=== PATIENT | male | born 1970 | race Caucasian/White ===

== ENCOUNTER 2018-01-16 17:35 | Inpatient (IN) | payer MEDICARE, MEDICAID ==
[~2018-01-16] VITALS: Ht 188 cm; Wt 81.0 kg
[~2018-01-16 17:35] MED LIST: ASPI81TA30 PO; BACL10TA2 PO; CALC1TAB PO; DEXT1DRO6 OP; DOCU250C47 PO; FLO0.4C PO; LACT10SO74 PO; MAG DELAY64 MG PO; METH1TAB PO; MULT1TAB74 PO; POLY119P2 PO; RISP0.5T3 PO; [UNRECOGNIZED DRUG - CODE] EACH EAR
[2018-01-16] MEDS ORDERED: normal saline 1000ML IV soln IV ONE (18:05)
[2018-01-16] MEDS ORDERED: cefepime 2g/NS 100ml ADVANTAGE 100 ML IV ONE (18:15)
[2018-01-16 18:39] LABS: BASOPHILS % (AUTO) 0.1 % (0-1); EOSINOPHILS % (AUTO) 0 % (0-6); HEMATOCRIT 46.3 % (42.0-52.0); HEMOGLOBIN 15.1 g/dl (14.0-17.9); LYMPHOCYTES # (AUTO) 0.2 X10'3 (1.1-4.8); LYMPHOCYTES % (AUTO) 1.6 % (21-51); MEAN CORPUSCULAR HEMOGLOBIN 27.8 PG (27.0-31.0); MEAN CORPUSCULAR HGB CONC 32.6 % (33.0-36.5); MEAN CORPUSCULAR VOLUME 85.4 FL (78-98); MEAN PLATELET VOLUME 9.6 FL (7.4-10.4); MONOCYTES % (AUTO) 7.3 % (2-12); NEUTROPHILS # (AUTO) 12.3 X10'3 (1.8-7.7); PLATELET COUNT 158 X10'3 (140-440); RED BLOOD COUNT 5.42 X10'6 (4.70-6.10); RED CELL DISTRIBUTION WIDTH 16.3 % (11.5-14.5); WHITE BLOOD COUNT 13.6 X10'3 (4.5-11.0)
[2018-01-16 18:54] LABS: ALANINE AMINOTRANSFERASE 22 U/L (12-78); ALBUMIN 2.9 G/DL (3.4-5.0); ALBUMIN/GLOBULIN RATIO 0.7 (1.1-1.5); ALKALINE PHOSPHATASE 116 IU/L (46-116); ANION GAP 8 (8-16); ASPARTATE AMINO TRANSFERASE 9 U/L (10-37); BILIRUBIN,TOTAL 0.4 MG/DL (0.1-1.0); BLOOD UREA NITROGEN 26 MG/DL (7-18); BUN/CREATININE RATIO 17.6 (5.4-32.0); CHLORIDE 102 MMOL/L (99-107); CREATININE 1.48 MG/DL (0.60-1.10); GLUCOSE 189 MG/DL (70-104); POTASSIUM 4.1 MMOL/L (3.5-5.1); SODIUM 137 MMOL/L (135-145); TOTAL CARBON DIOXIDE 26.8 MMOL/L (24-32); TOTAL PROTEIN 6.8 G/DL (6.4-8.2); eGFR 51 ML/MIN
[2018-01-16 18:59] LABS: INR 1.1 INR; PARTIAL THROMBOPLASTIN TIME 32 SECONDS (22-32); PROTHROMBIN TIME 11.4 SECONDS (9.0-12.0)
[2018-01-16 19:25] LABS: CLARITY,URINE CLOUDY (Clear); GLUCOSE, URINE NEGATIVE (Neg); KETONES,URINE NEGATIVE (Neg); LEUKOCYTE ESTERASE ,URINE LARGE (Neg); NITRITES, URINE NEGATIVE (Neg); OCCULT BLOOD,URINE LARGE (Neg); PH,URINE 8.5 (4.8-8.0); PROTEIN,URINE 30 mg/dl (Neg); UROBILINOGEN,URINE 0.2 E.U/dL (0.2-1.0)
[2018-01-16 19:33] LABS: UA COLLECTION TYPE FOLEY CATH
[2018-01-16 19:34] LABS: COLOR,URINE DARK YELLOW (Yellow)
[2018-01-16 19:35] LABS: BACTERIA,URINE FEW /HPF (Neg); RBC,URINE TNTC /HPF (0-2); SQUAMOUS EPITHELIAL CELL,UR FEW /LPF (FEW); WBC CLUMPS,URINE FEW /HPF (NEGATIVE)
[2018-01-16] MEDS ORDERED: MUPI15CR12 TOP (19:50)
[2018-01-16] MEDS ORDERED: HYPR10GE4 EACHEYE (19:50)
[2018-01-16] MEDS ORDERED: FLO0.4C PO ×2 (19:50→19:56)
[2018-01-16] MEDS ORDERED: GUAI200T5 PO (19:54)
[2018-01-16] MEDS ORDERED: levoFLOXACIN-Levaquin 750MG/D5 150 ML IV STA (21:31)
[2018-01-16] MEDS ORDERED: ondansetron/PF 4mg/2ml inj IV PRN (21:45)
[2018-01-16] MEDS ORDERED: acetaminophen 325mg tablet PO PRN (21:45)
[2018-01-16] MEDS ORDERED: risperiDONE 0.5mg tablet PO PRN (21:55)
[2018-01-16] MEDS: normal saline 1000ml 1,000 ML IV SCH (22:01)
[2018-01-16 23:20] VITALS: BP 117/72
[2018-01-17] MEDS: cefepime 1GM/NS ADD-VANTAGE 100 ML IV SCH ×4 (00:11→23:44)
[2018-01-17 06:00] VITALS: BP 95/62
[2018-01-17 06:14] LABS: BASOPHILS % (AUTO) 0.4 % (0-1); EOSINOPHILS % (AUTO) 0.1 % (0-6); HEMATOCRIT 37.8 % (42.0-52.0); HEMOGLOBIN 12.5 g/dl (14.0-17.9); LYMPHOCYTES # (AUTO) 0.7 X10'3 (1.1-4.8); LYMPHOCYTES % (AUTO) 8.8 % (21-51); MEAN CORPUSCULAR HEMOGLOBIN 28.1 PG (27.0-31.0); MEAN CORPUSCULAR VOLUME 85.2 FL (78-98); MEAN PLATELET VOLUME 9.6 FL (7.4-10.4); MONOCYTES % (AUTO) 13.6 % (2-12); NEUTROPHILS # (AUTO) 5.8 X10'3 (1.8-7.7); NEUTROPHILS % (AUTO) 77.1 % (42-75); PLATELET COUNT 127 X10'3 (140-440); RED BLOOD COUNT 4.44 X10'6 (4.70-6.10); RED CELL DISTRIBUTION WIDTH 15.8 % (11.5-14.5); WHITE BLOOD COUNT 7.5 X10'3 (4.5-11.0)
[2018-01-17 06:43] LABS: ALANINE AMINOTRANSFERASE 20 U/L (12-78); ALBUMIN 2.2 G/DL (3.4-5.0); ALBUMIN/GLOBULIN RATIO 0.7 (1.1-1.5); ALKALINE PHOSPHATASE 93 IU/L (46-116); ANION GAP 8 (8-16); ASPARTATE AMINO TRANSFERASE 11 U/L (10-37); BILIRUBIN,TOTAL 0.5 MG/DL (0.1-1.0); BLOOD UREA NITROGEN 24 MG/DL (7-18); BUN/CREATININE RATIO 17.5 (5.4-32.0); CALCIUM 7.8 MG/DL (8.5-10.1); CHLORIDE 109 MMOL/L (99-107); CREATININE 1.37 MG/DL (0.60-1.10); GLUCOSE 95 MG/DL (70-104); POTASSIUM 4.1 MMOL/L (3.5-5.1); SODIUM 141 MMOL/L (135-145); TOTAL CARBON DIOXIDE 24.4 MMOL/L (24-32); TOTAL PROTEIN 5.5 G/DL (6.4-8.2); eGFR 56 ML/MIN
[2018-01-17] MEDS ORDERED: guaiFENesin ER 600mg tablet PO SCH (08:00)
[2018-01-17] MEDS: HYPROMELLOSE EACHEYE SCH (08:00)
[2018-01-17] MEDS: magnesium Cl slow-release 64mg tablet PO SCH ×2 (08:00→20:00)
[2018-01-17] MEDS ORDERED: aspirin 81mg tablet.DR PO SCH (08:00)
[2018-01-17] MEDS: normal saline 1000ml 1,000 ML IV SCH ×2 (08:07→20:41)
[2018-01-17] MEDS: baclofen 10mg tablet PO SCH ×3 (08:15→21:00)
[2018-01-17] MEDS: docusate sod 100mg capsule PO SCH ×2 (08:15→20:00)
[2018-01-17] MEDS: aspirin 81mg tab.chew PO SCH (08:16)
[2018-01-17] MEDS: lactulose 20gm/30ml cup PO SCH (08:17)
[2018-01-17] MEDS: guaiFENesin 200 MG/10 ML oral syrup UD cup PO SCH ×2 (08:17→20:00)
[2018-01-17] MEDS: levoFLOXACIN-Levaquin 500mg/D5 100 ML IV SCH (09:28)
[2018-01-17 10:00] VITALS: BP 101/67
[2018-01-17] MEDS ORDERED: magnesium 4gm in 100ml NS 100 ML IV PRN (10:00)
[2018-01-17 18:00] VITALS: BP 116/78
[2018-01-17 22:00] VITALS: BP 120/77
[2018-01-17] MEDS ORDERED: acetaminophen 650mg rectal suppository RC PRN (22:35)
[2018-01-18] MEDS: normal saline 1000ml 1,000 ML IV SCH ×3 (03:45→23:31)
[2018-01-18 06:00] VITALS: BP 139/91
[2018-01-18 06:08] LABS: BASOPHILS % (AUTO) 0.3 % (0-1); EOSINOPHILS # (AUTO) 0.1 X10'3 (0-0.9); EOSINOPHILS % (AUTO) 2.6 % (0-6); HEMATOCRIT 43.4 % (42.0-52.0); HEMOGLOBIN 14.2 g/dl (14.0-17.9); LYMPHOCYTES # (AUTO) 0.7 X10'3 (1.1-4.8); LYMPHOCYTES % (AUTO) 13.6 % (21-51); MEAN CORPUSCULAR HEMOGLOBIN 27.9 PG (27.0-31.0); MEAN CORPUSCULAR HGB CONC 32.8 % (33.0-36.5); MEAN PLATELET VOLUME 9.5 FL (7.4-10.4); MONOCYTES % (AUTO) 18.5 % (2-12); NEUTROPHILS # (AUTO) 3.4 X10'3 (1.8-7.7); PLATELET COUNT 136 X10'3 (140-440); RED CELL DISTRIBUTION WIDTH 16.1 % (11.5-14.5); WHITE BLOOD COUNT 5.2 X10'3 (4.5-11.0)
[2018-01-18 06:38] LABS: ALANINE AMINOTRANSFERASE 29 U/L (12-78); ALBUMIN 2.6 G/DL (3.4-5.0); ALBUMIN/GLOBULIN RATIO 0.7 (1.1-1.5); ALKALINE PHOSPHATASE 97 IU/L (46-116); ANION GAP 7 (8-16); ASPARTATE AMINO TRANSFERASE 32 U/L (10-37); BILIRUBIN,TOTAL 0.5 MG/DL (0.1-1.0); BLOOD UREA NITROGEN 15 MG/DL (7-18); BUN/CREATININE RATIO 10.8 (5.4-32.0); CALCIUM 8.7 MG/DL (8.5-10.1); CHLORIDE 104 MMOL/L (99-107); CREATININE 1.39 MG/DL (0.60-1.10); GLUCOSE 97 MG/DL (70-104); SODIUM 138 MMOL/L (135-145); TOTAL PROTEIN 6.5 G/DL (6.4-8.2); eGFR 55 ML/MIN
[2018-01-18] MEDS: magnesium Cl slow-release 64mg tablet PO SCH ×2 (07:35→20:00)
[2018-01-18] MEDS: HYPROMELLOSE EACHEYE SCH (07:38)
[2018-01-18] MEDS: docusate sod 100mg capsule PO SCH ×2 (07:39→20:00)
[2018-01-18] MEDS: cefepime 1GM/NS ADD-VANTAGE 100 ML IV SCH ×3 (07:55→23:30)
[2018-01-18] MEDS: baclofen 10mg tablet PO SCH ×3 (07:56→20:16)
[2018-01-18] MEDS: aspirin 81mg tab.chew PO SCH (07:56)
[2018-01-18] MEDS: guaiFENesin 200 MG/10 ML oral syrup UD cup PO SCH ×2 (07:58→20:15)
[2018-01-18] MEDS: lactulose 20gm/30ml cup PO SCH (08:00)
[2018-01-18] MEDS: levoFLOXACIN-Levaquin 500mg/D5 100 ML IV SCH (08:41)
[2018-01-18 10:00] VITALS: BP 130/88
[2018-01-18] MEDS ORDERED: ondansetron/PF 4mg/2ml inj IV PRN (10:30)
[2018-01-18 18:00] VITALS: BP 133/90
[2018-01-18 22:01] VITALS: BP 124/83
[2018-01-19 06:00] VITALS: BP 120/71
[2018-01-19 06:44] LABS: BASOPHILS % (AUTO) 0.3 % (0-1); EOSINOPHILS # (AUTO) 0.1 X10'3 (0-0.9); EOSINOPHILS % (AUTO) 2.4 % (0-6); HEMATOCRIT 43.9 % (42.0-52.0); HEMOGLOBIN 14.2 g/dl (14.0-17.9); LYMPHOCYTES # (AUTO) 0.8 X10'3 (1.1-4.8); LYMPHOCYTES % (AUTO) 13.1 % (21-51); MEAN CORPUSCULAR HEMOGLOBIN 27.6 PG (27.0-31.0); MEAN CORPUSCULAR HGB CONC 32.4 % (33.0-36.5); MEAN CORPUSCULAR VOLUME 85.1 FL (78-98); MEAN PLATELET VOLUME 9.8 FL (7.4-10.4); MONOCYTES # (AUTO) 1.2 X10'3 (0-0.9); MONOCYTES % (AUTO) 20.5 % (2-12); NEUTROPHILS # (AUTO) 3.9 X10'3 (1.8-7.7); NEUTROPHILS % (AUTO) 63.7 % (42-75); PLATELET COUNT 149 X10'3 (140-440); RED BLOOD COUNT 5.16 X10'6 (4.70-6.10); RED CELL DISTRIBUTION WIDTH 15.9 % (11.5-14.5); WHITE BLOOD COUNT 6.1 X10'3 (4.5-11.0)
[2018-01-19] MEDS: HYPROMELLOSE EACHEYE SCH (07:12)
[2018-01-19] MEDS: docusate sod 100mg capsule PO SCH ×2 (07:12→20:00)
[2018-01-19] MEDS: magnesium Cl slow-release 64mg tablet PO SCH ×2 (07:12→20:00)
[2018-01-19] MEDS: cefepime 1GM/NS ADD-VANTAGE 100 ML IV SCH (07:19)
[2018-01-19 07:33] LABS: ALANINE AMINOTRANSFERASE 29 U/L (12-78); ALBUMIN 2.5 G/DL (3.4-5.0); ALBUMIN/GLOBULIN RATIO 0.7 (1.1-1.5); ALKALINE PHOSPHATASE 93 IU/L (46-116); ANION GAP 7 (8-16); ASPARTATE AMINO TRANSFERASE 26 U/L (10-37); BILIRUBIN,TOTAL 0.5 MG/DL (0.1-1.0); BLOOD UREA NITROGEN 12 MG/DL (7-18); BUN/CREATININE RATIO 9.8 (5.4-32.0); CALCIUM 8.7 MG/DL (8.5-10.1); CHLORIDE 104 MMOL/L (99-107); CREATININE 1.22 MG/DL (0.60-1.10); GLUCOSE 103 MG/DL (70-104); SODIUM 138 MMOL/L (135-145); TOTAL CARBON DIOXIDE 26.8 MMOL/L (24-32); TOTAL PROTEIN 6.3 G/DL (6.4-8.2); eGFR 64 ML/MIN
[2018-01-19] MEDS: aspirin 81mg tab.chew PO SCH (08:21)
[2018-01-19] MEDS: baclofen 10mg tablet PO SCH ×3 (08:21→20:24)
[2018-01-19] MEDS: lactulose 20gm/30ml cup PO SCH (08:22)
[2018-01-19] MEDS: guaiFENesin 200 MG/10 ML oral syrup UD cup PO SCH ×2 (08:23→20:22)
[2018-01-19] MEDS: levoFLOXACIN-Levaquin 500mg/D5 100 ML IV SCH (08:25)
[2018-01-19 10:00] VITALS: BP 125/85
[2018-01-19] MEDS: normal saline 1000ml 1,000 ML IV SCH ×2 (10:59→20:30)
[2018-01-19] MEDS: piperacillin-tazo 2.25gm/50ml 50 ML IV SCH ×2 (13:18→20:23)
[2018-01-19 18:00] VITALS: BP 105/60
[2018-01-19] MEDS: lactobacillus rhamnosus 10,000 MMU CELLS/CAPSULE PO SCH (20:24)
[2018-01-19 22:00] VITALS: BP 113/85
[2018-01-20] MEDS: piperacillin-tazo 2.25gm/50ml 50 ML IV SCH ×2 (01:45→10:02)
[2018-01-20 06:00] VITALS: BP 133/88
[2018-01-20 06:36] LABS: BASOPHILS % (AUTO) 0.5 % (0-1); EOSINOPHILS # (AUTO) 0.3 X10'3 (0-0.9); EOSINOPHILS % (AUTO) 5.9 % (0-6); HEMOGLOBIN 14.9 g/dl (14.0-17.9); LYMPHOCYTES # (AUTO) 0.8 X10'3 (1.1-4.8); LYMPHOCYTES % (AUTO) 14.9 % (21-51); MEAN CORPUSCULAR HEMOGLOBIN 28.1 PG (27.0-31.0); MEAN CORPUSCULAR HGB CONC 33.2 % (33.0-36.5); MEAN CORPUSCULAR VOLUME 84.8 FL (78-98); MEAN PLATELET VOLUME 8.7 FL (7.4-10.4); MONOCYTES # (AUTO) 0.8 X10'3 (0-0.9); MONOCYTES % (AUTO) 14.2 % (2-12); NEUTROPHILS # (AUTO) 3.6 X10'3 (1.8-7.7); NEUTROPHILS % (AUTO) 64.5 % (42-75); PLATELET COUNT 176 X10'3 (140-440); RED BLOOD COUNT 5.31 X10'6 (4.70-6.10); RED CELL DISTRIBUTION WIDTH 16.3 % (11.5-14.5); WHITE BLOOD COUNT 5.7 X10'3 (4.5-11.0)
[2018-01-20 06:59] LABS: ALANINE AMINOTRANSFERASE 29 U/L (12-78); ALBUMIN 2.5 G/DL (3.4-5.0); ALBUMIN/GLOBULIN RATIO 0.6 (1.1-1.5); ALKALINE PHOSPHATASE 87 IU/L (46-116); ANION GAP 7 (8-16); ASPARTATE AMINO TRANSFERASE 18 U/L (10-37); BILIRUBIN,TOTAL 0.6 MG/DL (0.1-1.0); BLOOD UREA NITROGEN 15 MG/DL (7-18); BUN/CREATININE RATIO 10.5 (5.4-32.0); CALCIUM 8.7 MG/DL (8.5-10.1); CHLORIDE 106 MMOL/L (99-107); CREATININE 1.43 MG/DL (0.60-1.10); GLUCOSE 106 MG/DL (70-104); SODIUM 140 MMOL/L (135-145); TOTAL CARBON DIOXIDE 26.6 MMOL/L (24-32); TOTAL PROTEIN 6.4 G/DL (6.4-8.2); eGFR 53 ML/MIN
[2018-01-20] MEDS: HYPROMELLOSE EACHEYE SCH (08:00)
[2018-01-20] MEDS: levoFLOXACIN-Levaquin 500mg/D5 100 ML IV SCH (08:11)
[2018-01-20] MEDS: lactulose 20gm/30ml cup PO SCH (08:12)
[2018-01-20] MEDS: docusate sod 100mg capsule PO SCH (08:12)
[2018-01-20] MEDS: lactobacillus rhamnosus 10,000 MMU CELLS/CAPSULE PO SCH (08:12)
[2018-01-20] MEDS: guaiFENesin 200 MG/10 ML oral syrup UD cup PO SCH (08:12)
[2018-01-20] MEDS: magnesium Cl slow-release 64mg tablet PO SCH (08:12)
[2018-01-20] MEDS: aspirin 81mg tab.chew PO SCH (08:12)
[2018-01-20] MEDS: baclofen 10mg tablet PO SCH (08:12)
[2018-01-20 10:00] VITALS: BP 113/77
[2018-01-20] MEDS ORDERED: AMOX250S63 PO (10:55)
[2018-01-20] MEDS ORDERED: cipro PO (11:07)
== END 2018-01-20 12:30 | disposition home or self-care (01) | DRG 871 ==
LOC: ER 17:35 → ED HOLD 21:45 → ORTHO 4S 23:06
PROVIDERS: ADMIT Internal Medicine; ATTEND Internal Medicine
DX: A41.9 Sepsis, unspecified organism (principal); G82.50 Quadriplegia, unspecified; N39.0 Urinary tract infection, site not specified; B96.5 Pseudomonas (aeruginosa) (mallei) (pseudomallei) as the cause of diseases classified elsewhere; B96.4 Proteus (mirabilis) (morganii) as the cause of diseases classified elsewhere; B95.2 Enterococcus as the cause of diseases classified elsewhere; B96.1 Klebsiella pneumoniae [K. pneumoniae] as the cause of diseases classified elsewhere; Z74.01 Bed confinement status; Z99.3 Dependence on wheelchair; Z79.82 Long term (current) use of aspirin; Z79.899 Other long term (current) drug therapy; Z87.442 Personal history of urinary calculi
CPT/HCPCS: 36415; 71045; 80053; 81001; 83605; 84145; 85025; 85610; 85730; 87040; 87070; 87077; 87088; 87186; 92616; 96361; 96365; 96366; 99285; G0378; J0692; J1956; J2405; J2543; J7030

== ENCOUNTER 2018-01-22 22:23 | Emergency (ER) | payer MEDICARE, MEDICAID ==
[~2018-01-22] VITALS: Ht 185.4 cm; Wt 81.0 kg
[~2018-01-22 22:23] MED LIST changes: +AMOX250S63 PO; -CALC1TAB PO; -DEXT1DRO6 OP; +HYPR10GE4 EACHEYE; +cipro PO
[2018-01-22] MEDS ORDERED: LIDOcaine 2% 10ml TOPICAL JELLY (Urojet) MM ONE (23:15)
[2018-01-23 02:32] VITALS: BP 103/79
== END 2018-01-23 02:46 | disposition home or self-care (01) ==
LOC: ER 22:24
DX: T83.098A Other mechanical complication of other urinary catheter, initial encounter (principal); R31.0 Gross hematuria; G83.89 Other specified paralytic syndromes; R62.50 Unspecified lack of expected normal physiological development in childhood; Z79.82 Long term (current) use of aspirin; Z79.899 Other long term (current) drug therapy; Y92.9 Unspecified place or not applicable
CPT/HCPCS: 51702; 99284

== ENCOUNTER → 2018-06-13 | Emergency (ER) | payer MEDICARE, MEDICAID ==
[~2018-06-13] VITALS: Ht 188 cm; Wt 80.9 kg
[~2018-06-13] MED LIST changes: -AMOX250S63 PO; +LIDOcaine 2% 10ml TOPICAL JELLY (Urojet) MM ONE
[2018-06-13 16:02] VITALS: BP 104/83
== END | disposition home or self-care (01) ==
LOC: ER 15:55
DX: N36.8 Other specified disorders of urethra (principal); S37.39XA Other injury of urethra, initial encounter; Z79.82 Long term (current) use of aspirin; X58.XXXA Exposure to other specified factors, initial encounter; Y93.89 Activity, other specified; Y92.89 Other specified places as the place of occurrence of the external cause; Y99.8 Other external cause status
CPT/HCPCS: 51702; 99284

== ENCOUNTER 2018-10-13 13:10 | Inpatient (IN) | payer MEDICARE, MEDICAID ==
[~2018-10-13] VITALS: Ht 185.4 cm; Wt 85.0 kg
[~2018-10-13 13:10] MED LIST changes: -LIDOcaine 2% 10ml TOPICAL JELLY (Urojet) MM ONE; +[UNRECOGNIZED DRUG - CODE] EACH EAR; -[UNRECOGNIZED DRUG - CODE] EACH EAR
[2018-10-13] MEDS ORDERED: normal saline 1000ML IV soln IV ONE (13:25)
[2018-10-13] MEDS ORDERED: piperacillin/tazo 3.375gm/50ml 50 ML IV ONE (13:25)
[2018-10-13 13:45] LABS: CLARITY,URINE CLOUDY (Clear); COLOR,URINE STRAW (Yellow); GLUCOSE, URINE NEGATIVE (Neg); KETONES,URINE NEGATIVE (Neg); LEUKOCYTE ESTERASE ,URINE NEGATIVE (Neg); NITRITES, URINE POSITIVE (Neg); OCCULT BLOOD,URINE TRACE-INTACT (Neg); PH,URINE 5.5 (4.8-8.0); PROTEIN,URINE NEGATIVE (Neg); UROBILINOGEN,URINE 0.2 E.U/dL (0.2-1.0)
[2018-10-13 13:46] LABS: UA COLLECTION TYPE FOLEY CATH
[2018-10-13 13:51] LABS: BACTERIA,URINE 4+ /HPF (Neg); RBC,URINE 0-2 /HPF (0-2); WBC,URINE 0-4 /HPF (0-4)
[2018-10-13 13:52] LABS: SQUAMOUS EPITHELIAL CELL,UR NONE SEEN /LPF (FEW)
[2018-10-13 14:04] LABS: EOSINOPHILS # (AUTO) 0.1 X10'3 (0-0.9)
[2018-10-13 14:05] LABS: BASOPHILS # (AUTO) 0.1 X10'3 (0-0.2); BASOPHILS % (AUTO) 0.8 % (0-1); EOSINOPHILS % (AUTO) 1.9 % (0-6); HEMATOCRIT 44.6 % (42.0-52.0); HEMOGLOBIN 14.5 g/dl (14.0-17.9); LYMPHOCYTES # (AUTO) 0.8 X10'3 (1.1-4.8); LYMPHOCYTES % (AUTO) 9.9 % (21-51); MEAN CORPUSCULAR HEMOGLOBIN 26.5 PG (27.0-31.0); MEAN CORPUSCULAR HGB CONC 32.6 g/dL (33.0-36.5); MEAN CORPUSCULAR VOLUME 81.2 FL (78-98); MEAN PLATELET VOLUME 9.2 FL (7.4-10.4); MONOCYTES # (AUTO) 1.3 X10'3 (0-0.9); MONOCYTES % (AUTO) 16.4 % (2-12); NEUTROPHILS # (AUTO) 5.5 X10'3 (1.8-7.7); PLATELET COUNT 173 X10'3 (140-440); RED CELL DISTRIBUTION WIDTH 16.4 % (11.5-14.5); WHITE BLOOD COUNT 7.8 X10'3 (4.5-11.0)
[2018-10-13 14:46] LABS: ALANINE AMINOTRANSFERASE 27 U/L (12-78); ALBUMIN 2.3 G/DL (3.4-5.0); ALBUMIN/GLOBULIN RATIO 0.5 (1.1-1.5); ALKALINE PHOSPHATASE 99 IU/L (46-116); ANION GAP 8 (8-16); ASPARTATE AMINO TRANSFERASE 21 U/L (10-37); BILIRUBIN,TOTAL 0.5 MG/DL (0.1-1.0); BLOOD UREA NITROGEN 30 MG/DL (7-18); BUN/CREATININE RATIO 15.2 (5.4-32.0); CALCIUM 8.5 MG/DL (8.5-10.1); CHLORIDE 103 MMOL/L (99-107); CREATININE 1.97 MG/DL (0.60-1.10); GLUCOSE 138 MG/DL (70-104); MAGNESIUM 2.2 MG/DL (1.5-2.4); POTASSIUM 3.9 MMOL/L (3.5-5.1); SODIUM 141 MMOL/L (135-145); TOTAL CARBON DIOXIDE 29.9 MMOL/L (24-32); TOTAL PROTEIN 6.5 G/DL (6.4-8.2); eGFR 36 ML/MIN
[2018-10-13] MEDS ORDERED: CARB15DR91 EACH EAR (15:12)
[2018-10-13] MEDS ORDERED: acetaminophen 325mg tablet PO PRN ×2 (15:40)
[2018-10-13] MEDS ORDERED: ondansetron/PF 4mg/2ml inj IV PRN (15:40)
[2018-10-13] MEDS ORDERED: magnesium 4gm in 100ml NS 100 ML IV PRN (15:40)
[2018-10-13] MEDS ORDERED: magnesium 2GM in 50ml NS 50 ML IV PRN (15:40)
[2018-10-13] MEDS ORDERED: mag hydrox/Alum hydrox/simeth 30ml oral suspension PO PRN (15:40)
[2018-10-13] MEDS ORDERED: potassium CL 10mEq/100ml bag 100 ML IV PRN ×2 (15:40)
[2018-10-13] MEDS ORDERED: potassium Cl 20 mEq SR tablet PO PRN ×2 (15:40)
[2018-10-13] MEDS ORDERED: magnesium Cl slow-release 64mg tablet PO PRN (15:40)
[2018-10-13] MEDS ORDERED: risperiDONE 0.5mg tablet PO PRN (15:45)
[2018-10-13] MEDS: normal saline 1000ml 1,000 ML IV SCH ×2 (16:36→20:13)
[2018-10-13] MEDS: CefTRIAXone 2gm/D5W 50ml 50 ML IV SCH ×2 (16:37→20:13)
--- NOTE | 2018-10-13 18:46 | NUR ---
received report from Cee TANG RN. Awaiting pt arrival to unit.
--- NOTE | 2018-10-13 18:50 | NUR ---
pt brought to unit. placed into bed with family at bedside and care provider. vitals are 99.4 axillary, 90hr, 20rr, 99% RA, 129/69. will continue to monitor
[2018-10-13 20:00] VITALS: BP 129/69
[2018-10-13] MEDS: baclofen 10mg tablet PO SCH (20:29)
[2018-10-13] MEDS: docusate sod 100mg capsule PO SCH (20:29)
[2018-10-13] MEDS: heparin, porcine 5000 units/ml vial SQ SCH (20:29)
[2018-10-13] MEDS ORDERED: temazepam 15mg capsule PO PRN (21:00)
[2018-10-14] VITALS: BP 116/73
[2018-10-14] MEDS: normal saline 1000ml 1,000 ML IV SCH ×3 (01:38→21:38)
[2018-10-14 01:49] VITALS: BP 116/73
[2018-10-14 04:57] LABS: BASOPHILS % (AUTO) 0.5 % (0-1); EOSINOPHILS # (AUTO) 0.2 X10'3 (0-0.9); EOSINOPHILS % (AUTO) 3.8 % (0-6); HEMATOCRIT 41.4 % (42.0-52.0); HEMOGLOBIN 13.4 g/dl (14.0-17.9); LYMPHOCYTES # (AUTO) 0.6 X10'3 (1.1-4.8); LYMPHOCYTES % (AUTO) 11.6 % (21-51); MEAN CORPUSCULAR HEMOGLOBIN 26.1 PG (27.0-31.0); MEAN CORPUSCULAR HGB CONC 32.4 g/dL (33.0-36.5); MEAN CORPUSCULAR VOLUME 80.7 FL (78-98); MONOCYTES # (AUTO) 1.1 X10'3 (0-0.9); MONOCYTES % (AUTO) 20.2 % (2-12); NEUTROPHILS # (AUTO) 3.4 X10'3 (1.8-7.7); NEUTROPHILS % (AUTO) 63.9 % (42-75); PLATELET COUNT 157 X10'3 (140-440); RED BLOOD COUNT 5.13 X10'6 (4.70-6.10); RED CELL DISTRIBUTION WIDTH 16.7 % (11.5-14.5); WHITE BLOOD COUNT 5.3 X10'3 (4.5-11.0)
[2018-10-14 05:10] LABS: ALBUMIN 2.4 G/DL (3.4-5.0); MAGNESIUM 1.9 MG/DL (1.5-2.4); POTASSIUM 4.2 MMOL/L (3.5-5.1); SODIUM 144 MMOL/L (135-145)
[2018-10-14 05:34] LABS: ALANINE AMINOTRANSFERASE 34 U/L (12-78); ALBUMIN/GLOBULIN RATIO 0.6 (1.1-1.5); ALKALINE PHOSPHATASE 105 IU/L (46-116); ANION GAP 12 (8-16); ASPARTATE AMINO TRANSFERASE 22 U/L (10-37); BILIRUBIN,TOTAL 0.3 MG/DL (0.1-1.0); BLOOD UREA NITROGEN 24 MG/DL (7-18); BUN/CREATININE RATIO 16.7 (5.4-32.0); CALCIUM 8.9 MG/DL (8.5-10.1); CHLORIDE 107 MMOL/L (99-107); CREATININE 1.44 MG/DL (0.60-1.10); GLUCOSE 110 MG/DL (70-104); TOTAL PROTEIN 6.6 G/DL (6.4-8.2); eGFR 52 ML/MIN
--- NOTE | 2018-10-14 06:27 | NUR ---
Problems reprioritized. Patient report given, questions answered & plan of care reviewed with LEIDA Connor.
--- NOTE | 2018-10-14 06:37 | NUR ---
Patient in room [facility]. I have received report from NIELS CASAREZ and had the opportunity to ask questions and assume patient care.
[2018-10-14] MEDS: CefTRIAXone 2gm/D5W 50ml 50 ML IV SCH (07:57)
[2018-10-14] MEDS: polyvinyl alcohol ophthalmic drops 15ml bottle EACHEYE SCH (07:59)
[2018-10-14 08:00] VITALS: BP 133/96
[2018-10-14] MEDS: K and/or MAG REPLACEMENT MC SCH (08:00)
[2018-10-14] MEDS: baclofen 10mg tablet PO SCH ×3 (08:03→20:05)
[2018-10-14] MEDS: aspirin 81mg tab.chew PO SCH (08:03)
[2018-10-14] MEDS: docusate sod 100mg capsule PO SCH ×2 (08:03→19:46)
[2018-10-14] MEDS: heparin, porcine 5000 units/ml vial SQ SCH ×2 (08:04→19:48)
[2018-10-14 09:04] LABS: TOTAL CELLS COUNTED 100
[2018-10-14 09:10] LABS: PLATELET ESTIMATE NORMAL
[2018-10-14 09:11] LABS: ANISOCYTOSIS 1+
[2018-10-14 11:00] VITALS: BP 111/77
[2018-10-14 18:00] VITALS: BP 133/80
--- NOTE | 2018-10-14 18:00 | NUR ---
Patient in room [facility]. I have received report from LEIDA Connor and had the opportunity to ask questions and assume patient care.
[2018-10-14] MEDS: lactobacillus rhamnosus 10,000 MMU CELLS/CAPSULE PO SCH (19:46)
[2018-10-15] VITALS: BP 123/76
[2018-10-15 05:00] LABS: BASOPHILS % (AUTO) 0.7 % (0-1); EOSINOPHILS # (AUTO) 0.3 X10'3 (0-0.9); EOSINOPHILS % (AUTO) 5.3 % (0-6); HEMATOCRIT 39.6 % (42.0-52.0); HEMOGLOBIN 12.7 g/dl (14.0-17.9); MEAN CORPUSCULAR HEMOGLOBIN 25.9 PG (27.0-31.0); MEAN CORPUSCULAR VOLUME 80.8 FL (78-98); NEUTROPHILS # (AUTO) 3.2 X10'3 (1.8-7.7); PLATELET COUNT 176 X10'3 (140-440); RED BLOOD COUNT 4.91 X10'6 (4.70-6.10); RED CELL DISTRIBUTION WIDTH 16.2 % (11.5-14.5); WHITE BLOOD COUNT 5.5 X10'3 (4.5-11.0)
[2018-10-15 05:11] LABS: ALANINE AMINOTRANSFERASE 36 U/L (12-78); ALBUMIN 2.2 G/DL (3.4-5.0); ALBUMIN/GLOBULIN RATIO 0.6 (1.1-1.5); ALKALINE PHOSPHATASE 114 IU/L (46-116); ANION GAP 9 (8-16); ASPARTATE AMINO TRANSFERASE 25 U/L (10-37); BILIRUBIN,TOTAL 0.2 MG/DL (0.1-1.0); BLOOD UREA NITROGEN 19 MG/DL (7-18); BUN/CREATININE RATIO 14.8 (5.4-32.0); CALCIUM 8.6 MG/DL (8.5-10.1); CHLORIDE 111 MMOL/L (99-107); CREATININE 1.28 MG/DL (0.60-1.10); GLUCOSE 104 MG/DL (70-104); MAGNESIUM 1.7 MG/DL (1.5-2.4); POTASSIUM 4.2 MMOL/L (3.5-5.1); SODIUM 144 MMOL/L (135-145); TOTAL CARBON DIOXIDE 24.5 MMOL/L (24-32); TOTAL PROTEIN 6.1 G/DL (6.4-8.2); eGFR 60 ML/MIN
[2018-10-15 05:53] LABS: ANISOCYTOSIS 1+; PLATELET ESTIMATE NORMAL; TOTAL CELLS COUNTED 100
--- NOTE | 2018-10-15 06:29 | NUR ---
Problems reprioritized. Patient report given, questions answered & plan of care reviewed with LEIDA Rodrigues.
--- NOTE | 2018-10-15 06:30 | NUR ---
Patient in room [facility]. I have received report from Elias CASAREZ and had the opportunity to ask questions and assume patient care.
[2018-10-15 07:39] VITALS: BP 111/77
[2018-10-15] MEDS: K and/or MAG REPLACEMENT MC SCH (08:00)
[2018-10-15] MEDS: normal saline 1000ml 1,000 ML IV SCH (09:49)
[2018-10-15] MEDS: CefTRIAXone 2gm/D5W 50ml 50 ML IV SCH (09:49)
[2018-10-15] MEDS: polyvinyl alcohol ophthalmic drops 15ml bottle EACHEYE SCH (09:50)
[2018-10-15] MEDS: aspirin 81mg tab.chew PO SCH (09:51)
[2018-10-15] MEDS: docusate sod 100mg capsule PO SCH (09:51)
[2018-10-15] MEDS: lactobacillus rhamnosus 10,000 MMU CELLS/CAPSULE PO SCH (09:52)
[2018-10-15] MEDS: baclofen 10mg tablet PO SCH ×2 (09:52→13:00)
[2018-10-15] MEDS: heparin, porcine 5000 units/ml vial SQ SCH (09:53)
[2018-10-15] MEDS ORDERED: CIPR-259 PO (10:08)
--- NOTE | 2018-10-15 10:39 | NUR ---
Pt with low Castillo of 12. Pt with CP and is quadriplegic. Skin intact per physical assessment. Pt currently on a pureed thin liquid diet with documented 75-100% PO intake meeting nutrient needs. No nutrition intervention warranted at this time. Will continue to follow. Addendum: 10/15/18 at [address] Amended: Links added.
[2018-10-15 11:27] VITALS: BP 140/92
--- NOTE | 2018-10-15 13:38 | NUR ---
Wound consult: Low Castillo already addressed, see below. Pt with low Castillo of 12. Pt with CP and is quadriplegic. Skin intact per physical assessment. Pt currently on a pureed thin liquid diet with documented 75-100% PO intake meeting nutrient needs. No nutrition intervention warranted at this time. Will continue to follow. Addendum: 10/15/18 at [address] Amended: Links added.
--- NOTE | 2018-10-15 15:00 | NUR ---
Patient IV was taken out at time of discharge and further discharge teaching was done by break Nurse, Patient was picked up by facility transport services and sent with medications belongings and discharge teaching packet.
== END 2018-10-15 15:35 | disposition home or self-care (01) | DRG 871 ==
LOC: ER 13:11 → SUR 3N 19:00 → CMPBEDREQ 19:02
PROVIDERS: ADMIT Internal Medicine; ATTEND Internal Medicine
DX: A41.9 Sepsis, unspecified organism (principal); J18.9 Pneumonia, unspecified organism; G82.50 Quadriplegia, unspecified; N39.0 Urinary tract infection, site not specified; B96.1 Klebsiella pneumoniae [K. pneumoniae] as the cause of diseases classified elsewhere; F29 Unspecified psychosis not due to a substance or known physiological condition; G83.9 Paralytic syndrome, unspecified; Z79.82 Long term (current) use of aspirin; Z79.899 Other long term (current) drug therapy
CPT/HCPCS: 36415; 71045; 80053; 81001; 83605; 83735; 84145; 85025; 87040; 87077; 87081; 87088; 87186; 93005; 96365; 96367; 99285; G0378; J0696; J1644; J2543; J7030

== ENCOUNTER 2022-06-17 06:36 | Day surgery (SDC) | payer MEDICARE, MEDICAID ==
[~2022-06-17] VITALS: Ht 188 cm; Wt 91.2 kg
[~2022-06-17 06:36] MED LIST changes: +ACET325T57 PO; -ASPI81TA30 PO; +ASPI81TA52 PO; +ATOR10TA70 PO; +BACL-11 PO; -BACL10TA2 PO; +BISA10SU60 RC; +CARB15DR91 EACH EAR; -DOCU250C47 PO; +GUAI400T92 PO; -HYPR10GE4 EACHEYE; -LACT10SO74 PO; +LORA10TA7 PO; -MAG DELAY64 MG PO; +MAGN400O6 PO; -METH1TAB PO; +METH1TAB32 PO; +METO5TAB85 PO; +MULT-620 PO; -MULT1TAB74 PO; +NA P133E4 RC; +NEOM1OIN8 TOP; +NYST60PO2 TOP; +PROP10DR5 EACHEYE; +PSEU120T55 PO; -RISP0.5T3 PO; +RISP1TAB98 PO; +SELE325S2 TOP; +ZINC57OI3 TOP; -[UNRECOGNIZED DRUG - CODE] EACH EAR; -cipro PO
[2022-06-17] MEDS ORDERED: normal saline 1000ml 1,000 ML IV PRN (07:00)
[2022-06-17 07:11] VITALS: BP 124/94
[2022-06-17] MEDS ORDERED: iohexol 300mg/ml 100ml inj. ONE (08:33)
[2022-06-17 09:50] VITALS: BP 124/72
== END 2022-06-17 10:15 ==
LOC: SSTAY O 06:36
PROVIDERS: ATTEND Radiology Diagnostic Radiology
DX: K94.23 Gastrostomy malfunction (principal); G80.9 Cerebral palsy, unspecified; N18.9 Chronic kidney disease, unspecified; Z87.442 Personal history of urinary calculi; Z98.890 Other specified postprocedural states; Z79.899 Other long term (current) drug therapy; Z82.49 Family history of ischemic heart disease and other diseases of the circulatory system
CPT/HCPCS: 49450; B4087; C1769; J7030; Q9967; A6449

== ENCOUNTER 2022-06-19 14:50 | Emergency (ER) | payer MEDICARE, MEDICAID ==
[~2022-06-19] VITALS: Ht 180.3 cm; Wt 91.4 kg
[~2022-06-19 14:50] MED LIST changes: -FLO0.4C PO; -GUAI400T92 PO; -METO5TAB85 PO; -PSEU120T55 PO
[2022-06-19 17:09] VITALS: BP 119/88
== END 2022-06-19 17:11 | disposition home or self-care (01) ==
LOC: ER 14:54
DX: K94.23 Gastrostomy malfunction (principal); Z79.899 Other long term (current) drug therapy; Z79.1 Long term (current) use of non-steroidal anti-inflammatories (NSAID); Z79.2 Long term (current) use of antibiotics; Z79.82 Long term (current) use of aspirin
CPT/HCPCS: 43762; 99283; 99284

== ENCOUNTER 2022-08-16 08:48 | Emergency (ER) | payer MEDICARE, MEDICAID ==
[~2022-08-16] VITALS: Ht 188 cm; Wt 92.0 kg
[2022-08-16] MEDS ORDERED: diatrozoate meglu/diatrozoate sod (37% iodine) 120ML oral solution PO ONE (09:40)
[2022-08-16] MEDS ORDERED: diatr meglu/diatrizoate 30ml oral sol.-(3 dose) bottle PO ONE (09:45)
--- NOTE | 2022-08-16 09:45 | NUR ---
ASSISTED MD WITH G TUBE PLACEMENT ,PT HANDLED THE PROCEDURE WELL ,NO DISTRESS NOTED.CAREGIVER REMAINS AT THE BEDSIDE .
[2022-08-16 10:10] VITALS: BP 119/91
--- NOTE | 2022-08-16 14:42 | NUR ---
assisted caregiver with moving pt to wheelchair using lift
== END 2022-08-16 14:46 | disposition home or self-care (01) ==
LOC: ER 08:48
DX: K94.23 Gastrostomy malfunction (principal); Z87.448 Personal history of other diseases of urinary system; Z79.899 Other long term (current) drug therapy
CPT/HCPCS: 43762; 74018; 99284; Q9963

== ENCOUNTER 2023-04-17 11:13 | Day surgery (SDC) | payer MEDICARE, MEDICAID ==
[~2023-04-17] VITALS: Ht 185.4 cm; Wt 87.7 kg
[~2023-04-17 11:13] MED LIST changes: +RISP-31 PO; -RISP1TAB98 PO
[2023-04-17] MEDS ORDERED: iohexol 300 MG/1 ML 50ml polymer ONE (11:36)
[2023-04-17 12:01] VITALS: BP 124/85; PULSE 78; RESP 16; TEMP 97.6; O2SAT 96
[2023-04-17] MEDS ORDERED: METO5TAB85 PO (12:12)
[2023-04-17] MEDS ORDERED: OSC500T PO (12:12)
[2023-04-17] MEDS ORDERED: PROP10DR4 EACHEYE (12:12)
== END 2023-04-17 12:25 | disposition home or self-care (01) ==
LOC: SSTAY O 11:13
PROVIDERS: ATTEND Radiology Vascular & Interventional Radiology
DX: Z43.1 Encounter for attention to gastrostomy (principal); Z53.8 Procedure and treatment not carried out for other reasons; Z87.440 Personal history of urinary (tract) infections; Z79.899 Other long term (current) drug therapy
CPT/HCPCS: Q9967

== ENCOUNTER 2023-05-01 09:06 | Day surgery (SDC) | payer MEDICARE, MEDICAID ==
[2023-05-01] VITALS (7 sets, daily range): BP systolic 91–140; BP diastolic 65–76; PULSE 59–65; RESP 12–15; TEMP 97.8; O2SAT 96–98
[~2023-05-01] VITALS: Ht 185.4 cm; Wt 92.1 kg
[~2023-05-01 09:06] MED LIST changes: -ACET325T57 PO; -BISA10SU60 RC; -CARB15DR91 EACH EAR; +METO5TAB85 PO; -NA P133E4 RC; -NEOM1OIN8 TOP; -NYST60PO2 TOP; +OSC500T PO; +PROP10DR4 EACHEYE; -SELE325S2 TOP; -ZINC57OI3 TOP
[2023-05-01] MEDS ORDERED: midazolam 1 mg/ML 2ml injection ONE (11:25)
[2023-05-01] MEDS ORDERED: iohexol 300 MG/1 ML 50ml polymer ONE (11:25)
[2023-05-01] MEDS ORDERED: LIDOcaine 1% 30ml preserv. free vial ONE (11:25)
[2023-05-01] MEDS ORDERED: glucagon, human recombinant 1mg kit ONE (11:25)
[2023-05-01] MEDS ORDERED: fentaNYL/PF 50MCG/1 ML 2ML syringe ONE (11:25)
[2023-05-01 11:42] LABS: BASOPHILS % (AUTO) 0.6 % (0-1); EOSINOPHILS # (AUTO) 0.2 X10'3 (0-0.9); EOSINOPHILS % (AUTO) 2.7 % (0-6); HEMATOCRIT 53.5 % (42.0-52.0); LYMPHOCYTES # (AUTO) 1.3 X10'3 (1.1-4.8); LYMPHOCYTES % (AUTO) 21.2 % (21-51); MEAN CORPUSCULAR HEMOGLOBIN 29.1 PG (27.0-31.0); MEAN CORPUSCULAR HGB CONC 33.6 g/dL (33.0-36.5); MEAN CORPUSCULAR VOLUME 86.8 FL (78-98); MEAN PLATELET VOLUME 9.5 FL (7.4-10.4); MONOCYTES # (AUTO) 0.8 X10'3 (0-0.9); MONOCYTES % (AUTO) 13.4 % (2-12); NEUTROPHILS # (AUTO) 3.7 X10'3 (1.8-7.7); NEUTROPHILS % (AUTO) 62.1 % (42-75); PLATELET COUNT 167 X10'3 (140-440); RED BLOOD COUNT 6.17 X10'6 (4.70-6.10); RED CELL DISTRIBUTION WIDTH 15.5 % (11.5-14.5); WHITE BLOOD COUNT 5.9 X10'3 (4.5-11.0)
[2023-05-01 11:50] LABS: APTT 31 SECONDS (22-32); INR 1.1 INR; PROTHROMBIN TIME 11.6 SECONDS (9.0-12.0)
[2023-05-01] MEDS ORDERED: tPA-cathflo 2 MG/2 ml IV flush ONE (12:26)
== END 2023-05-01 14:20 | disposition home or self-care (01) ==
LOC: SSTAY O 09:06
PROVIDERS: ATTEND Radiology Vascular & Interventional Radiology
DX: R13.10 Dysphagia, unspecified (principal); M48.02 Spinal stenosis, cervical region; M41.20 Other idiopathic scoliosis, site unspecified; G80.9 Cerebral palsy, unspecified; N31.2 Flaccid neuropathic bladder, not elsewhere classified; I05.9 Rheumatic mitral valve disease, unspecified; Z79.899 Other long term (current) drug therapy; Z79.01 Long term (current) use of anticoagulants
CPT/HCPCS: 36415; 49440; 85025; 85610; 85730; 99152; C1713; J1610; J2250; J3010; J3490; J7030; Q9967; 99153; A4620; B4087; J2997